=== PATIENT | male | born 1935 | race Caucasian/White ===

== ENCOUNTER 2016-05-31 15:37 | Emergency (ER) | payer MEDICARE ==
[2016-05-31] MEDS: ACETAMINOPHEN 500 MG TABLET PO ONE (15:57)
[2016-05-31 16:18] LABS: Urine Appearance Slightly Cloudy; Urine Bilirubin Negative (NEGATIVE); Urine Blood 10 /ul (NEGATIVE); Urine Color Yellow; Urine Ketone Negative (NEGATIVE); Urine Nitrite Negative (NEGATIVE); Urine Protein Negative (NEGATIVE); Urine Specific Gravity 1.025 SP.GR. (1.005-1.030); Urine Urobilinogen Normal (NORMAL); Urine pH 6.5 pH (5.0-7.0)
[2016-05-31 16:19] LABS: Urine Bacteria None Seen; Urine RBC 0-5 /hpf (0-5); Urine WBC 0-5 /hpf (0-5)
[2016-05-31 16:47] LABS: Hematocrit 46.7 % (42.0-52.0); Hemoglobin 15.5 gm/dL (13.5-18.0); Mean Cell Volume 85.7 fl (78-100); Mean Corpuscular Hemoglobin 28.4 pg (27-31); Mean Corpuscular Hgb Conc 33.2 g/dl (32-36); Mean Platelet Volume 10.7 fl (6.0-9.5); Neutrophil # 4.5 K/mm3 (1.3-6.0); Neutrophil % 73.6 % (42-75.0); Platelet Count 201 K/mm3 (150-450); Red Blood Count 5.45 M/mm3 (4.7-6.0); Red Cell Distribution Width 13.2 % (11.5-14.0); White Blood Count 6.1 K/mm3 (4.0-10.5)
[2016-05-31 16:58] LABS: Albumin * 3.6 gm/dl (3.4-5.0); Anion Gap 14.9 mmol/L (6.8-13.8); BUN/Creatinine Ratio 12.7 (9.0-21.6); Bilirubin, Total 0.9 mg/dL (0.0-1.1); Ca. Corrected For Albumin 9.1 mg/dL (8.4-10.2); Calcium * 9.1 mg/dL (7.9-10.9); Carbon Dioxide 25.1 mmol/L (24-32.6)
--- NOTE | 2016-05-31 17:08 | ERNOTE ---
Medical Problem HPI - Narrative Date of Service: 05/31/16 - General Chief Complaint: Flu Symptoms Time Seen by Provider: 05/31/16 17:16 Source: patient, family Exam Limitations: no limitations - Immun/Allergies/Home Medications Immunizations: IMMUNIZATION HX Immunizations Up to Date Yes History of Influenza Vaccine Yes Hx Pneumococcal Vaccination Yes Allergies/Adverse Reactions: Allergies Sulfa (Sulfonamide Antibiotics) Adverse Reaction (Mild, Verified 05/31/16 15:51) Vomiting Home Medications: HOME MEDICATIONS Alprazolam [Alprazolam Odt] 0.25 mg PO TID PRN 12/14/12 [Last Taken 12/14/12] Finasteride [Proscar] 5 mg PO DAILY 12/14/12 [Last Taken 12/14/12] Hydrocortisone Acetate [Anusol Hc Suppository] 25 mg RC BID #28 supp.rect [Last Taken Unknown] Omeprazole Magnesium [Prilosec] 10 mg PO DAILY 02/13/16 [Last Taken Unknown] Sildenafil Citrate [Viagra] 100 mg PO DAILY PRN 02/13/16 [Last Taken Unknown] Oseltamivir Phosphate [Tamiflu] 75 mg PO BID #9 cap 05/31/16 [Last Taken Unknown ] - History of Present History Narrative: 2 days ago, had a scratchy throat. Progressed to chills and sweats, weak, cough , occasionally productive. Temp to 101.6. Cough occasionally causes a small amount of vomiting. Daughter presently suffering from stage four cancer. Timing: getting worse Severity: moderate Modifying Factors - (Improves): Present: other - nothing Modifying Factors - (Worsens): Present: movement Review of Systems - Review of Systems Constitutional: Present: fever, chills, diaphoresis, weakness, fatigue, malaise EYE: Present: no symptoms reported ENT: Present: sore throat Respiratory: Present: cough Cardiology: Present: no symptoms reported Gastrointestinal/Abdominal: Present: no symptoms reported Genitourinary: Present: no symptoms reported Musculoskeletal: Present: no symptoms reported Skin: Present: no symptoms reported Neurological: Present: no symptoms reported Endocrine: Present: no symptoms reported Hematologic/Lymphatic: Present: no symptoms reported Psych: Present: no symptoms reported All Other Systems: All systems neg except as marked - Patient's Past Medical History Patient History - Medical: Anxiety Patient History - Cardiac/Respiratory: No pertinent hx Patient History - Cancer: Skin Patient History - Surgical Procedures: Appendectomy, Colonoscopy, EGD, T & A, Other - Family History Mother Family History - Medical: , No pertinent hx Family History - Cardiac/Respiratory: TIA Father Family History - Medical: , No pertinent hx Family History - Cardiac/Respiratory: CVA/Stroke - Social History Living Situations: spouse Does anyone smoke in the home?: No Smoking Status: Never smoker Have you smoked in the past 12 months: No Do you dip or chew tobacco: No Alcohol Use: none Drug Use: none Physical Exam - Physical Exam General Appearance: Present: wd/wn, alert, mild distress Eye Exam: Normal inspection: bilateral, PERRL: bilateral, EOMI: bilateral Ears, Nose, Throat: Present: normal ENT inspection, hearing grossly normal, nasal congestion, pharyngeal erythema Neck: Present: normal inspection, nontender Respiratory: Present: no respiratory distress, normal breath sounds Cardiovascular/Chest: Present: regular rate, rhythm, no murmur Gastrointestinal/Abdominal: Present: normal bowel sounds, nontender, nondistended, soft, no organomegaly Back Exam: Present: normal inspection Extremity Exam: Present: normal inspection, no edema Neurological Exam: Present: alert, oriented Skin Exam: Present: normal color, warm/dry ED Progress - Results and Orders Patient's Lab Results:: I have reviewed the patient's lab results. - Vital Signs Patient's Vital Signs:: I have reviewed the patient's vital signs. Vital Signs: Vital Signs 05/31/16 05/31/16 15:48 17:01 Temperature 38.8 C H Pulse Rate 117 H 96 Respiratory 15 26 H Rate Blood Pressure 160/84 116/71 O2 Sat by Pulse 96 91 Oximetry - X-Ray X-Ray #1 X-Ray: chest Interpretation: Interp. by me - elevated left cassy diaphragm. - Progress/Reassessment Chief Complaint: Flu Symptoms Departure - Departure Clinical Impression: Influenza A Disposition: Home self-care Condition: Good Instructions: Influenza, Adult, [id number] Additional Instructions: Follow up with your doctor in 2-3 days. Tylenol 650 mg four times daily on a regular basis. Referrals: Shivam Garcia MD [Primary Care Provider] - Prescriptions: Oseltamivir Phosphate [Tamiflu] 75 mg PO BID #9 cap
[2016-05-31] MEDS: NORMAL SALINE 1,000 ML IV ONE (17:16)
[2016-05-31] MEDS ORDERED: OSELTAMIVIR PHOSPHATE 75 MG CAPSULE PO ONE (17:19)
[2016-05-31] MEDS: OSELTAMIVIR PHOSPHATE 75 MG CAPSULE PO ONE (17:22)
[2016-05-31 18:53] VITALS: BP 138/72
== END 2016-05-31 18:45 | disposition home or self-care (01) ==
LOC: ER 15:37
DX: J09.X2 Influenza due to identified novel influenza A virus with other respiratory manifestations (principal); Z85.828 Personal history of other malignant neoplasm of skin